=== PATIENT | female | born 1995 | race Caucasian/White ===

== ENCOUNTER 2017-05-26 02:32 | Emergency (ER) | payer MEDICAID ==
[~2017-05-26] VITALS: Ht 157.5 cm; Wt 69.9 kg
[2017-05-26 02:35] VITALS: BP_SYST 105
[2017-05-26] MEDS ORDERED: SULFAMETHOXAZOLE/TRIMETHOPR DS 1 TABLET PO ONE (03:00)
[2017-05-26] MEDS ORDERED: IBUPROFEN 800 MG TABLET PO ONE (03:00)
[2017-05-26] MEDS ORDERED: CLINDAMYCIN HCL 150 MG CAPSULE PO ONE (03:00)
[2017-05-26 03:15] VITALS: BP_SYST 110
== END 2017-05-26 03:15 | disposition home or self-care (01) ==
LOC: SED 02:32
DX: T63.441A Toxic effect of venom of bees, accidental (unintentional), initial encounter (principal); L03.115 Cellulitis of right lower limb; Y92.89 Other specified places as the place of occurrence of the external cause
CPT/HCPCS: 99284